=== PATIENT | male | born 2000 | race Two or more races ===

== ENCOUNTER 2025-05-28 06:18 | Emergency (ER) | payer MEDICAID, OTHER ==
[~2025-05-28] VITALS: Ht 177.8 cm; Wt 112.1 kg
--- NOTE | 2025-05-28 07:25 | ED.PDOC ---
History of Present Illness(SKN HPI Comments HPI: Kaye 25 y.o male presents to the ED for an evaluation of an insect bite. Patient reports being bitten by a black spider around 0400 today. Patient reports he did not see spider bite him, however his father went to check up on him this morning and noticed a spider on the floor and pulled something out of his neck. He presents with bite and swelling to the lower base of his neck with no neck pain reported Additionally, he complains of developing back, abdominal and chest pain s/p bite with tightness described around his abdomen and a "punching" sensation across his chest. He denies any nausea, vomiting, fever, chills. Initial Vitals BP: 150/86 HR: 88 RR: 18 O2: 96% Temp: 97.5 F Past Medical History: Denies Past Surgical History: Denies Social History: Denies ETOH, smoking, and drug use. Medications: Denies Allergies: Denies KAYE: Presumed insect bite HPI: Poor Historian. REVIEW OF SYSTEMS: CONSTITUTIONAL: Denies acute: fever, diaphoresis, chills, generalized weakness. HEAD: Denies acute: headache, photophobia Eyes: Denies acute: Double vision, vision loss, eye pain, eye discharge. EARS: Denies acute: tinnitus, hearing loss, ear discharge, ear pain, THROAT: Denies acute: sore throat, swelling, difficulty swallowing , pain with swallowing, change in voice. NECK: Denies acute stiff neck. HEART: Denies acute : , palpitations, LUNGS: Denies acute: SOB, wheezing, cough, hemoptysis ABDOMEN: Denies acute: abdominal pain, Nausea, Vomiting, diarrhea, melena , hematemesis, hematochezia SKIN: Denies acute: , , lesions, itchiness. EXTREMITIES: Denies acute: calf pain, numbness, tingling, weakness, denies pain in extremity. Denies acute: Low back pain. Neuro: Denies acute: focal neurological deficit, motor or sensory focal neurological deficit, tremors, seizure like activity, confusion, dizziness, change in mental status, loss of bowel or bladder function, cauda equina like symptoms. : Denies acute: dysuria, hematuria, flank pain, increase in urinary frequency. PSYCH: Denies acute: hallucination, suicidal ideation, homicidal ideation. PHYSICAL EXAM: General: ----mild----acute distress, awake and alert. Head: normocephalic, atraumatic. Neck: supple, trachea is midline, no swelling. Throat: Normal phonation. Eyes:, no erythema, no purulent discharge, no proptosis, no icterus. Heart: regular rate, regular rhythm, no significant murmur appreciated. Lungs: no apparent respiratory distress, Able to speak in full sentences. No wheezing, no rhonchi, no crackles. No stridors Clear to auscultation bilaterally. Abdomen: non tender to palpation, non distended, soft, no guarding, no rebound, + bowel sounds. Neuro: Awake, Alert, oriented to name, self, situation, follows commands GCS=15. Speech is normal. Skin: no petechia, no purpura, no cyanosis, non-pale, not jaundice. Lower extremities: --no - Pitting edema no deformity, no focal swelling, no calf TTP. Makes eye contact. moves all four extremities. Face: no apparent facial droop. Ambulating in the ED independently. No nuchal rigidity, Kernig's sign, Brudzinski's sign, no meningeal signs. ED COURSE: DISCLAIMER: This medical document was created using an electronic medical record system with voice recognition software and computerized dictation system. Although this document has been carefully reviewed, there might still be some phonetic and typographical errors. Occasional wrong-word or "sound-alike" substitutions may have occurred due to the inherent limitations of voice recognition software. These areas are purely typographical due to imperfections of the software programs and do not reflect any compromise in the patient's medical care. Please read the chart carefully and recognize, using context, where these substitutions have occurred. Chief Complaint: Insect Bite Time Seen by MD: 07:08 History of Present Illness: Medications, Allergies Allergies: Coded Allergies: NO KNOWN ALLERGIES (Unverified , 05/28/25) Information Source: Patient, Relative Mode of Arrival: Ambulatory Past Medical History PAST MEDICAL HISTORY: Denies Surgical History: Denies all surgeries Social History Smoker: Non-Smoker Alcohol: Denies ETOH Use Drugs: Denies Drug Use Lives In: Home Was a procedure done? Was a procedure done?: No Differential Diagnosis (INTG) Differential Diagnosis: Insect Envenomation, Puncture Wound X-Ray, Labs, Meds, VS Vital Signs Date Time Temp Pulse Resp B/P (MAP) Pulse Ox O2 Delivery O2 Flow Rate FiO2 05/28/25 09:49 97 Room Air* 0 21 05/28/25 09:48 74 20 139/82 (101) 97 05/28/25 09:47 139/82 05/28/25 07:58 75 20 98 Room Air 05/28/25 07:58 98.5 75 20 132/82 (99) 98 98.5 05/28/25 06:20 97.5 88 18 150/86 96 97.5 Lab Test 05/28/25 07:17 Range/Units White Blood Count 10.8 4.4-10.8 10^3/uL Red Blood Count 5.62 4.5-5.90 10^6/uL Hemoglobin 17.4 13.5-17.5 g/dL Hematocrit 49.5 41.0-53.0 % Mean Corpuscular Volume 88.2 80.0-100.0 fL Mean Corpuscular Hemoglobin 31.0 28.0-32.0 pg Mean Corpuscular Hemoglobin Concent 35.1 32.0-36.0 g/dL Red Cell Distribution Width 12.7 11.8-14.3 % Platelet Count 453 H 140-450 10^3/uL Mean Platelet Volume 7.7 6.9-10.8 fL Neutrophils (%) (Auto) 69.5 37.0-80.0 % Lymphocytes (%) (Auto) 21.8 10.0-50.0 % Monocytes (%) (Auto) 6.4 0.0-12.0 % Eosinophils (%) (Auto) 1.5 0.0-7.0 % Basophils (%) (Auto) 0.8 0.0-2.0 % Neutrophils # (Auto) 7.5 1.6-8.6 10 ^3/uL Lymphocytes # (Auto) 2.3 0.4-5.4 10 ^3/uL Monocytes # (Auto) 0.7 0-1.3 10 ^3/uL Eosinophils # (Auto) 0.2 0-0.8 10 ^3/uL Basophils # (Auto) 0.1 0-0.2 10 ^3/uL Nucleated Red Blood Cells 0.1 % Sodium Level 144 136-145 mmol/L Potassium Level 4.7 3.5-5.1 mmol/L Chloride Level 106 98-107 mmol/L Carbon Dioxide Level 27 20-31 mmol/L Anion Gap 11 5-15 Blood Urea Nitrogen 9 9-23 mg/dL Creatinine 0.84 0.700-1.30 mg/dL Glomerular Filtration Rate Calc 126 >90 mL/min BUN/Creatinine Ratio 10.7 10.0-20.0 Serum Glucose 101 74-106 mg/dL Lactic Acid Level 1.7 0.4-2.0 mmol/L Calcium Level 9.4 8.7-10.4 mg/dL Total Bilirubin 0.6 0.2-1.0 mg/dL Aspartate Amino Transferase (AST) 22 13-40 U/L Alanine Aminotransferase (ALT) 28 7-40 U/L Alkaline Phosphatase 67 46-116 U/L Troponin I High Sensitivity 3 L </=54 ng/L Total Protein 7.7 5.7-8.2 g/dL Albumin 4.8 3.2-4.8 g/dL Current Medications Medications (Trade) Dose Ordered Sig/Pino Route Start Time Stop Time Status Last Admin Diphenhydramine HCl (Benadryl Injection) 25 mg ONCE ONCE IV 05/28/25 07:15 05/28/25 07:16 DC 05/28/25 07:53 Methylprednisolone Sodium Succinate (Solu Medrol) 125 mg ONCE ONCE IV 05/28/25 07:15 05/28/25 07:16 DC 05/28/25 07:53 Acetaminophen/ Hydrocodone Bitart (Sharon 5/325MG Tab) 1 tab ONCE ONCE PO 05/28/25 07:45 05/28/25 07:46 DC 05/28/25 07:52 Ketorolac Tromethamine (Toradol Injection) 30 mg ONCE ONCE IV 05/28/25 08:00 05/28/25 08:01 DC 05/28/25 08:10 Clindamycin Phosphate 50 ml @ 50 mls/hr ONCE ONCE IV 05/28/25 08:45 05/28/25 09:44 DC 05/28/25 09:05 Sodium Chloride 1,000 ml @ 1,000 mls/hr Q1H ONCE IV 05/28/25 09:30 05/28/25 10:29 DC 05/28/25 09:48 Time of 1ST Reevaluation: 07:19 Reevaluation 1ST: Unchanged Time of 2ND Reevaluation: 09:26 (The site on his upper back base of the neck where he was allegedly bit by a spider. The swelling has improved.) Patient Education/Counseling: Diagnosis, Treatment Family Education/Counseling: Diagnosis, Treatment Departure 1 Departure Time of Disposition: 10:58 Impression: Primary Impression: Insect bite Additional Impression: Body aches Disposition: HOME / SELF CARE / HOMELESS Condition: Stable Additional Instructions: Additional instructions: Please read all instructions provided in this packet carefully. You MUST follow-up with your primary care/family doctor in 1 to 2 days. If you are unable to see your primary care/family doctor, please return to our emergency room for re-assessment and re-evaluation in 1 to 2 days. Return to the emergency room here in our facility or to the nearest ER [facility] if your symptoms change or worsen. Adequate fluid hydration. Although you have been discharged from the Emergency Department, this does not mean that you have a "clean bill of health". No definitive diagnosis for your symptoms has been made today. It is possible that you are in the process of developing a serious illness. This is why you must return to the ED without fail if any new or worsening symptoms develop. Return for reassessment in 24-48 hours or sooner if needed Use Tylenol ibuprofen with food as instructed for body aches. e-Prescriptions Clindamycin Hcl (Clindamycin Hcl) 300 Mg Cap 1 CAP PO TID for 7 Days, #21 CAP Prov: RENO MCMILLAN DO 05/28/25 Discharged With: Self Critical Care Note Critical Care Time?: No I personally scribed for RENO MCMILLAN DO ([email or web address]) on 05/28/25 at 07:25. Electronically submitted by Britney Gonzalez ([employer]). I personally scribed for RENO MCMILLAN DO ([email or web address]) on 05/28/25 at 07:52. Electronically submitted by Britney Gonzalez ([employer]). RENO MCMILLAN DO May 28, 2025 07:25
[2025-05-28 07:44] LABS: Hemoglobin 17.4 g/dL (13.5-17.5); Nucleated Red Blood Cells % 0.1 %
[2025-05-28 07:45] LABS: Hematocrit 49.5 % (41.0-53.0); Mean Corpuscular Hemoglobin 31.0 pg (28.0-32.0); Mean Corpuscular Volume 88.2 fL (80.0-100.0)
[2025-05-28] MEDS: HYDROcodone-ACET 5/325MG TAB PO ONE (07:52)
[2025-05-28] MEDS: methylPREDNISolone SOD SUCC 125 MG/2 ML VL IV ONE (07:53)
[2025-05-28] MEDS: diphenhdrAMINE HCL 50 MG/1 ML VL IV ONE (07:53)
[2025-05-28 07:56] LABS: Alanine Aminotransferase 28 U/L (7-40); Alkaline Phosphatase 67 U/L (46-116); Anion Gap 11 (5-15); BUN/Creatinine Ratio 10.7 (10.0-20.0); Blood Urea Nitrogen 9 mg/dL (9-23); Calcium 9.4 mg/dL (8.7-10.4); Carbon Dioxide 27 mmol/L (20-31); Chloride 106 mmol/L (98-107); Glucose 101 mg/dL (74-106); Potassium 4.7 mmol/L (3.5-5.1); Sodium 144 mmol/L (136-145); Total Protein 7.7 g/dL (5.7-8.2)
[2025-05-28 07:57] LABS: Albumin 4.8 g/dL (3.2-4.8); Bilirubin, Total 0.6 mg/dL (0.2-1.0)
[2025-05-28] MEDS: KETOROLAC TROMETH 30 MG/ML 1ML VIAL IV ONE (08:10)
[2025-05-28] MEDS: CLINDAMYCIN 900MG IV 50 ML IV ONE (09:05)
[2025-05-28] MEDS: fentaNYL CITRATE 100 MCG/2 ML VL IV ONE (09:47)
[2025-05-28] MEDS: SODIUM CHLORIDE 0.9% 1,000 ML IV ONE (09:48)
[2025-05-28 10:58] VITALS: BP 138/64; PULSE 77; RESP 20; TEMP 98.5; O2SAT 96
[2025-05-28] MEDS ORDERED: CLIN1CAP70 PO (10:59)
--- NOTE | 2025-05-28 12:20 | ECG ---
[facility] Test Date: 2025-05-28 Test Time: 06:52:47 Pat Name: RUSLAN RESTREPO Department: Room: Gender: M Html Web Developer: RODNEY : 2000 Requested By: RENO MCMILLAN Order Number: [id number] Reading MD: Measurements Intervals Richards Rate: 74 P: 53 VT: 145 QRS: 53 QRSD: 88 T: 50 QT: 378 QTc: 420 Interpretive Statements Sinus rhythm ST elev, probable normal early repol pattern Baseline wander in lead(s) V5 Please click the below link to view image of tracing.
[2025-05-29] MEDS ORDERED: BACDST PO (01:36)
[2025-05-29] MEDS ORDERED: IBUP-1455 PO (01:36)
== END 2025-05-28 11:08 | disposition home or self-care (01) ==
LOC: ER 06:18
DX: S10.96XA Insect bite of unspecified part of neck, initial encounter (principal); R22.1 Localized swelling, mass and lump, neck; W57.XXXA Bitten or stung by nonvenomous insect and other nonvenomous arthropods, initial encounter; Y93.89 Activity, other specified; Y92.89 Other specified places as the place of occurrence of the external cause; Y99.8 Other external cause status
CPT/HCPCS: 36415; 80053; 83605; 84484; 85025; 93005; 96365; 96375; 99284; J1200; J1885; J2919; J3490; J7030

== ENCOUNTER 2025-05-28 22:21 | Emergency (ER) | payer MEDICAID ==
[~2025-05-28] VITALS: Ht 177.8 cm; Wt 112.6 kg
[~2025-05-28 22:21] MED LIST: CLIN1CAP70 PO
[2025-05-29 01:23] VITALS: PULSE 66; RESP 16; O2SAT 97
[2025-05-29] MEDS ORDERED: BACDST PO (01:36)
[2025-05-29] MEDS ORDERED: IBUP-1455 PO (01:36)
--- NOTE | 2025-05-29 01:37 | ED.PDOC ---
History of Present Illness HPI Comments This patient is a morbidly obese 25-year-old male who arrives the ED today for re-evaluation of systemic concerns that the patient believes is due to a spider bite. Patient arrives with complaints of needle like sensation in his feet and appears to have difficulty ambulating. Patient was seen this facility earlier today due to a spider bite on his back. Patient was sent home with medications, antibiotics and treatment. Studies at that time were unremarkable and physical evaluation was unremarkable for any signs of infective concerns. Patient denies any fever nausea or vomiting. Vital signs were stable. Chief Complaint: Body Pain Time Seen by MD: 22:23 Reviewed Notes: Nurses Notes Allergies: Coded Allergies: NO KNOWN ALLERGIES (Unverified , 05/28/25) Home Meds Active Scripts Clindamycin Hcl (Clindamycin Hcl) 300 Mg Cap, 1 CAP PO TID for 7 Days, #21 CAP Prov:RENO MCMILLAN 05/28/25 Information Source: Patient Mode of Arrival: Ambulatory Severity: Moderate Timing: Hours Duration: Since onset Prehospital treatment: Treatment Past Medical History PAST MEDICAL HISTORY: Denies Past Medical History (Other): Currently on antibiotics for spider bite that was treated earlier this morning Surgical History: Denies all surgeries Family History Family History: Reviewed,noncontributory to illness, No family hx of Cancer, No family hx of DM, No family hx of Heart aram, No family hx of HTN, No family hx ofKidney aram, No family hx of Liver aram, No family hx of Lung aram, No family hx of Stroke Social History Smoker: Non-Smoker Alcohol: Denies ETOH Use Drugs: Denies Drug Use Lives In: Home Constitutional: denies: chills, diaphoresis, fatigue, fever, malaise, sweats, weakness, others EENTM: denies: blurred vision, double vision, ear bleeding, ear discharge, ear drainage, ear pain, ear ringing, eye pain, eye redness, hearing loss, mouth pain, mouth swelling, nasal discharge, nose bleeding, nose congestion, nose pain, photophobia, tearing, throat pain, throat swelling, voice changes, others Respiratory: denies: cough, hemoptysis, orthopnea, SOB at rest, shortness of breath, SOB with excertion, stridor, wheezing, others Cardiovascular: denies: chest pain, dizzy spells, diaphoresis, Dyspnea on exertion, edema, irregular heart beat, left arm pain, lightheadedness, palpitations, PND, syncope, others Gastrointestinal: denies: abdomen distended, abdominal pain, blood streaked bowels, constipated, diarrhea, dysphagia, difficulty swallowing, hematemesis, melena, nausea, poor appetite, poor fluid intake, rectal bleeding, rectal pain, vomiting, others Genitourinary: denies: burning, dysuria, flank pain, frequency, hematuria, incontinence, penile discharge, penile sore, pain, testicle pain, testicle swelling, urgency, others Neurological: denies: dizziness, fainting, headache, left sided numbness, left sided weakness, numbness, paresthesia, pre-existing deficit, right sided numbness, right sided weakness, seizure, speech problems, tingling, tremors, weakness, others Musculoskeletal: reports: others (Bilateral foot prickling sensation); denies: back pain, gout, joint pain, joint swelling, muscle pain, muscle stiffness, neck pain Integumetry: denies: bruises, change in color, change in hair/nails, dryness, laceration, lesions, lumps, rash, wounds, others Allergic/Immunocompromised: denies: Difficulty Healing, Frequent Infections, Hives, Itching, others Hematologic/Lymphatic: denies: anemia, blood clots, easy bleeding, easy bruising, swollen glands, others Endocrine: denies: excessive hunger, excessive sweating, excessive thirst, excessive urination, flushing, intolerance to cold, intolerance to heat, unexplained weight gain, unexplained weight loss, others Psychiatric: denies: anxiety, bipolar disorder, depression, hopeless, panic disorder, schizophrenia, sleepless, suicidal, others Physical Exam General Appearance: Moderate Distress (Due to bilateral foot concerns.), Normal HEENT: Normal ENT Inspection, Pharynx Normal, TMs Normal Neck: Full Range of Motion, Non-Tender, Normal, Normal Inspection Respiratory: Chest Non-Tender, Lungs Clear, No Accessory Muscle Use, No Respiratory Distress, Normal Breath Sounds Cardiovascular: No Edema, No JVD, No Murmur, No Gallop, Normal Peripheral Pulses, Regular Rate/Rhythm Breast Exam: Deferred Gastrointestinal: No Organomegaly, Non Tender, No Pulsatile Mass, Normal Bowel Sounds, Soft Genitalia: Deferred Pelvic: Deferred Rectal: Deferred Extremities: Other (Oral foot evaluation. No edema or ecchymosis. No signs of trauma.) Neurologic: Alert Cerebellar Function: NOT DONE Reflexes: NOT DONE Skin: Dry, Normal Color, Warm Lymphatic: No Adenopathy Was a procedure done? Was a procedure done?: No Differential Dx Considerations may include: Radiculopathy, reaction to medications X-Ray, Labs, Meds, VS Vital Signs Date Time Temp Pulse Resp B/P (MAP) Pulse Ox O2 Delivery O2 Flow Rate FiO2 05/29/25 01:23 66 16 97 Room Air* 0 21 05/29/25 00:21 98.6 66 16 124/71 (88) 97 98.6 05/28/25 22:22 98.9 72 22 126/58 99 98.9 Current Medications Medications (Trade) Dose Ordered Sig/Pino Route Start Time Stop Time Status Last Admin Dexamethasone Sodium Phosphate (Decadron Injection) 4 mg ONCE ONCE IM 05/29/25 00:45 05/29/25 00:46 DC 05/29/25 01:08 X-Ray, Labs, Meds, VS Comment Patient was sent home on clindamycin for his unremarkable skin concerns. I will change the patient's antibiotics to stave off any allergic reactions that may be responsible for his foot discomfort. Advised Tylenol and or Motrin as needed. Time of 1ST Reevaluation: 01:35 Reevaluation 1ST: Improved Consultation: PCP Patient Education/Counseling: Diagnosis, Treatment Family Education/Counseling: Diagnosis, Treatment SEPSIS Sepsis Screen Date sepsis recognized/suspect: May 29, 2025 Time Sepsis recognized/suspect: 0124 Recent Procedure: No On Antibiotic Therapy: No Respiratory Rate >20: No Heart Rate >90: No Temp<36 C (96.8 F) or >38.3 C: No SBP <90 or MAP <65 mmHG: No New Acute Mental Status Change: No Is the patient on CPAP, BIPAP,: No Vital Signs Date Time Temp Pulse Resp B/P (MAP) Pulse Ox O2 Delivery O2 Flow Rate FiO2 05/29/25 01:23 66 16 97 Room Air* 0 21 05/29/25 00:21 98.6 66 16 124/71 (88) 97 98.6 05/28/25 22:22 98.9 72 22 126/58 99 98.9 Medications Medications Dose Ordered Sig/Pino Route Start Time Stop Time Status Last Admin Dose Admin Dexamethasone Sodium Phosphate 4 mg ONCE ONCE IM 05/29/25 00:45 05/29/25 00:46 DC 05/29/25 01:08 Departure 1 Departure Time of Disposition: 01:35 Impression: Primary Impression: Neuropathy Disposition: 01 HOME / SELF CARE / HOMELESS Condition: Stable Additional Instructions: Advised patient stop the clindamycin and utilize the Bactrim for the next few days. Patient should follow up with the primary care provider for re-evaluation in a few days. Tylenol and or Motrin as needed for pain relief. e-Prescriptions Ibuprofen Micronized (Ibuprofen) 800 Mg Tab 800 MG PO Q8HP PRN, #20 TAB Prov: TONY YE PAC 05/29/25 Sulfamethoxazole W/Trimethopri (Bactrim Ds Tablet) 1 Tab Tb 1 TAB PO BID for 7 Days, #14 TAB Prov: TONY YE PAC 05/29/25 Discharged With: Self, Friend Critical Care Note Critical Care Time?: No Stability Stability form required: No Heart Score Heart Score: Heart Score Response (Comments) Value History N/A 0 EKG N/A 0 Age N/A 0 Risk Factors N/A 0 Troponin N/A 0 Total 0 TONY YE PAC May 29, 2025 01:37
[2025-05-29 01:55] VITALS: BP 138/78; PULSE 61; RESP 18; TEMP 98.6; O2SAT 100
[2025-05-29] MEDS: GABAPENTIN 300 MG CAP PO ONE (02:01)
== END 2025-05-29 02:02 | disposition home or self-care (01) ==
LOC: ER 22:21
DX: G62.9 Polyneuropathy, unspecified (principal); T63.301A Toxic effect of unspecified spider venom, accidental (unintentional), initial encounter; E66.01 Morbid (severe) obesity due to excess calories; Z79.899 Other long term (current) drug therapy; Z68.35 Body mass index [BMI] 35.0-35.9, adult; Y92.89 Other specified places as the place of occurrence of the external cause
CPT/HCPCS: 96372; J1100